=== PATIENT | male | born 1980 | race Caucasian/White ===

== ENCOUNTER 2018-07-21 15:41 | Emergency (ER) | payer OTHER ==
[~2018-07-21] VITALS: Ht 180.3 cm; Wt 93.0 kg
[2018-07-21 15:48] VITALS: BP_SYST 113
--- NOTE | 2018-07-21 15:50 | NUR ---
Patient to ER bed h1 for evaluation.
--- NOTE | 2018-07-21 15:52 | NUR ---
Pt AAOx4 BIB [facility] for blood draw. Pt c/o cough and subjective fever x 4 days. Pt states he was taking amoxicillin and "another pill" from his girlfriend who has the same symptoms. No other injuries/complaints per pt/noted. Will continue to monitor.
--- NOTE | 2018-07-21 16:00 | NUR ---
ER Dr. Stewart at bedside examining patient.
--- NOTE | 2018-07-21 16:13 | NUR ---
Written and verbal consent obtained from patient for blood alcohol, name and verified by patient. Disinfected patient's skin with iodine that did not contain alcohol or other volatile organic compound. Collected the blood from the subject named by venipuncture, in the presence of Officer Darío Moore #[id number]. Used a sterile, dry hypodermic needle and dry vacuum blood collection. The dry vacuum blood collection was supplied by the officer named above. Withdrew two specimens of blood from of the subject named above. Inverted the blood tubes several times to ensure that the preservative and anticoagulant were thoroughly mixed in the blood specimens. Those tubes were immediately handed to the officer named above, additional blood was subsequently drawn from the same site after the initial draw so as not to contaminate the specimen vials for forensic processing. I retrived the blood from the officer, then initialed the blood tube label for identification. The labeled blood tubes were handed directly to the Officer named above. The blood tube stopper remained in place while I had possession of the blood tubes. The Officer placed tubes into envelope and sealed it in my presence. Envelope initialed by myself and Officer named above. Patient tolerated well, bandage applied, and bleeding controlled.
[2018-07-21 16:23] LABS: EOSINOPHILS # (AUTO) 0.2 K/uL (0.0-0.4); WHITE BLOOD COUNT (AUTO) 6.4 K/uL (4.8-10.8)
[2018-07-21 16:29] LABS: BASOPHILS % (AUTO) 0.4 % (0.0-2.0); EOSINOPHILS % (AUTO) 2.8 % (0.0-4.0); HEMATOCRIT 45.2 % (36-54); HEMOGLOBIN 15.8 g/dL (14.0-18.0); LYMPHOCYTES # (AUTO) 1.7 K/uL (1.0-5.5); MEAN CORPUSCULAR HEMOGLOBIN 31 pg (27-31); MEAN CORPUSCULAR HGB CONC 35 % (32-36); MEAN CORPUSCULAR VOLUME 88 fL (79.0-98.0); MONOCYTES # (AUTO) 0.6 K/uL (0.0-1.0); MONOCYTES % (AUTO) 8.8 % (1.7-9.3); NEUTROPHILS # (AUTO) 3.9 K/uL (1.8-7.7); RED BLOOD CELL COUNT(AUTO) 5.14 MIL/uL (4.2-6.2); RED CELL DISTRIBUTION WIDTH 11.4 % (9.0-15.0)
--- NOTE | 2018-07-21 16:33 | NUR ---
Patient was moved to bed 2 to facilitate better monitoring.
[2018-07-21 16:39] LABS: CALCIUM 9.1 mg/dL (8.4-11.0); CREATININE 1.16 mg/dL (0.55-1.30); POTASSIUM 3.6 mmol/L (3.5-5.1)
[2018-07-21 16:44] LABS: ALBUMIN 4.2 g/dL (3.4-4.8); TOTAL BILIRUBIN 0.2 mg/dL (0.0-1.0)
[2018-07-21] MEDS ORDERED: AZITHROMYCIN 250 MG TABLET PO ONE (17:00)
[2018-07-21] MEDS ORDERED: PSEUDOEPHEDRINE HCL 30 MG TABLET PO ONE (17:00)
[2018-07-21 17:06] LABS: PLATELET COUNT (AUTO) 222 K/uL (130-430)
[2018-07-21 17:20] VITALS: BP_SYST 112
--- NOTE | 2018-07-21 17:20 | NUR ---
Note undone in EDM - 07/21/18 at 1725 by [email or web address] Patient given written and verbal discharge instructions and verbalizes understanding. ER MD NEAL discussed with patient the results and treatment provided. Patient in stable condition. ID arm band removed. Rx of Azithromycin, Sudafed, Motrin given. Patient educated on pain management and to follow up with PMD. Opportunity for questions provided and answered. Medication side effect fact sheet provided.
== END 2018-07-21 17:20 ==
LOC: SED 15:41
DX: J40 Bronchitis, not specified as acute or chronic (principal); Z02.83 Encounter for blood-alcohol and blood-drug test
CPT/HCPCS: 36415; 71045; 80053; 84145; 85025; 99284; Q0144